=== PATIENT | male | born 1965 | race Caucasian/White ===

== ENCOUNTER 2017-01-16 15:49 | Emergency (ER) | payer MEDICAID, OTHER ==
[~2017-01-16] VITALS: Ht 175.3 cm; Wt 63.6 kg
[~2017-01-16 15:49] MED LIST: DIVA500T35 PO; FERR-89 PO; RISP1 PO
[2017-01-16 16:38] VITALS: BP 128/96
[2017-01-16] MEDS: POVIDONE-IODINE 10% 15 ML SOLUTION UD TP ONE (16:46)
[2017-01-16] MEDS: LIDOCAINE HCL BUFFERED 1% 20 ML VIAL INJ ONE (16:47)
[2017-01-16] MEDS: HYDROCODONE/ACETAMINOPHEN 5-325 MG TABLET PO ONE (16:47)
[2017-01-16] MEDS: PERTUSS(ACELL),DIPH,TET VAC/PF 0.5 ML VIAL IM ONE (16:48)
[2017-01-16] MEDS: BACITRACIN 0.9 GM PACKET OINTMENT TP ONE (17:13)
== END 2017-01-16 17:39 | disposition home or self-care (01) ==
LOC: EMS 15:50
DX: S81.811A Laceration without foreign body, right lower leg, initial encounter (principal); F17.210 Nicotine dependence, cigarettes, uncomplicated; W25.XXXA Contact with sharp glass, initial encounter; Y93.89 Activity, other specified; Y92.9 Unspecified place or not applicable; Y99.9 Unspecified external cause status
CPT/HCPCS: 12002; 90471; 90715; 99284; J3490